=== PATIENT | female | born 1955 | race Caucasian/White ===

== ENCOUNTER 2020-01-07 12:12 | Emergency (ER) | payer BC, MEDICARE ==
[2020-01-07] MEDS ORDERED: Sodium Chloride 0.9% 1,000 ML IV SCH (12:30)
[2020-01-07] MEDS ORDERED: Ondansetron 4 MG/2 ML SDV IVPUSH ONE (12:33)
[2020-01-07] MEDS ORDERED: LORazepam 2 MG/ML SDV IVPUSH ONE (12:48)
[2020-01-07] MEDS ORDERED: Sodium Chloride 0.9% 10 ML Syringe FLUSH PRN (13:57)
[2020-01-07] MEDS ORDERED: Iopamidol 755 Mg/ML 100 ML Bottle IVPUSH ONE (13:57)
[2020-01-07] MEDS ORDERED: Sodium Chloride 0.9% 100 ML IV SCH (14:00)
--- NOTE | 2020-01-07 14:02 | EDM.PDOC ---
ED HPI GENERAL MEDICAL PROBLEM - General Chief Complaint: Neuro Symptoms/Deficits Stated Complaint: STROKE SYMPTOMS Time Seen by Provider: 01/07/20 12:13 - History of Present Illness INITIAL COMMENTS - FREE TEXT/NARRATIVE: 64-year-old female presents the emergency room with strokelike symptoms. She was last known normal between 930 and 10:00 this morning. According to the , he left for a walk to let the dogs out between 930 and 10:00 this morning when he arrived back at their travel trailer she was sitting on the toilet slumped over stated she was not feeling well he was able to his sister to a place she could lay down. She was not getting better and over time developed worsening symptoms. The states that by the time they left the travel trailer in [place] she was not as weak as when she arrived here. 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 This did not require surgery and she rehabbed very well from this according to the she can do anything she wanted to do after rehab. Upon arrival here she has a very dense left-sided weakness. Patient has some underlying liver disease she is on lactulose and according to the a bunch of other liver medications. The patient is answering questions appropriately denies any pain in her head or elsewhere at this time, she is concerned about the weakness. - Related Data Allergies Allergy/AdvReac Type Severity Reaction Status Date / Time Penicillins Allergy Other Verified 01/07/20 12:58 Sulfa (Sulfonamide Allergy Other Verified 01/07/20 12:58 Antibiotics) Past Medical History HEENT History: Reports: Cataract Gastrointestinal History: Reports: Cirrhosis, Jaundice Neurological History: Reports: Brain Injury - Past Surgical History Musculoskeletal Surgical History: Reports: Shoulder Surgery Social & Family History - Family History Family Medical History: Noncontributory - Tobacco Use Smoking Status *Q: Never Smoker Second Hand Smoke Exposure: No - Caffeine Use Caffeine Use: Reports: None - Recreational Drug Use Recreational Drug Use: No ED ROS GENERAL - Review of Systems Review Of Systems: See Below Constitutional: Reports: Weakness. Denies: Fever, Chills HEENT: Reports: No Symptoms Respiratory: Reports: No Symptoms Cardiovascular: Reports: No Symptoms Endocrine: Reports: No Symptoms GI/Abdominal: Reports: No Symptoms. Denies: Abdominal Pain : Reports: No Symptoms Musculoskeletal: Reports: No Symptoms Skin: Reports: No Symptoms Neurological: Reports: Difficulty Walking, Weakness. Denies: Headache, Seizure, Syncope Psychiatric: Reports: No Symptoms ED EXAM, NEURO - Physical Exam Exam: See Below Exam Limited By: Other (The patient is answering questions appropriately she has a marked dense left-sided weakness) General Appearance: Alert Eye Exam: Bilateral Eye: PERRL, Other (She has a hard time looking over to the left but her head is rolled over to the right) Ears: Normal External Exam, Normal Canal, Hearing Grossly Normal, Normal TMs Nose: Normal Inspection, Normal Mucosa Throat/Mouth: Normal Inspection, Normal Lips, Normal Teeth, Normal Gums, Normal Oropharynx, Normal Voice, No Airway Compromise Head Exam: Atraumatic, Normocephalic Neck: Normal Inspection, Supple, Non-Tender. No: Full Range of Motion, Lymphadenopathy (L), Lymphadenopathy (R) Respiratory/Chest: No Respiratory Distress, Lungs Clear, Normal Breath Sounds Cardiovascular: No Edema, No Murmur, Tachycardia (115-120) GI/Abdominal: Normal Bowel Sounds, Soft, Non-Tender Neurological: Alert (Answers questions appropriately she will not do anything with her left leg. With her left arm she can flex it at the elbow a little bit she can squeeze her fingers a little deep tendon reflexes at the brachial radialis are preserved), Other (Initially the patient is tremulous on the affected side that made getting an EKG quite difficult we anticipated sedating her little to see if we get this to improve before getting the head CT however she did stop the tremors except for twitching her left great toe and was able to get the head CT without difficulty.) Extremities: Normal Inspection, No Pedal Edema EKG INTERPRETATION EKG Date: 01/07/20 Rhythm: Other (This tach) Rate (Beats/Min): 117 [place]: Other (Borderline leftward axis) P-Wave: Present QRS: Other (Borderline interventricular conduction delay) ST-T: Depressed (Nondiagnostic ST depression in the setting of no chest pain) Comparison: NA - No Prior EKG EKG Interpretation Comments: Abnormal EKG Course - Vital Signs Last Recorded V/S: Last Vital Signs Temp 36.6 C 01/07/20 12:25 Pulse 120 H 01/07/20 12:25 Resp 16 01/07/20 12:25 BP 170/87 H 01/07/20 12:25 Pulse Ox 95 01/07/20 12:25 - Orders/Labs/Meds Orders: Active Orders 24 hr Category Date Time Status Ang Head [CT] Stat Exams 01/07/20 13:55 Taken CTA Neck W & W/O Contrast [Ang Neck] [CT] Stat Exams 01/07/20 13:55 Taken Chest 1V Frontal [CR] Stat Exams 01/07/20 13:03 Taken Head wo Cont [CT] Stat Exams 01/07/20 12:23 Taken Labs: Laboratory Tests 01/07/20 01/07/20 01/07/20 Range/Units 12:20 12:20 12:20 WBC 5.36 (3.98-10.04) K/mm3 RBC 5.40 H (3.98-5.22) M/mm3 Hgb 16.0 H (11.2-15.7) gm/dl Hct 45.4 H (34.1-44.9) % MCV 84.1 (79.4-94.8) fl MCH 29.6 (25.6-32.2) pg MCHC 35.2 (32.2-35.5) g/dl RDW Std Deviation 48.0 H (36.4-46.3) fL Plt Count 95 L (182-369) K/mm3 MPV 10.9 (9.4-12.3) fl Neut % (Auto) 76.8 H (34.0-71.1) % Lymph % (Auto) 14.6 L (19.3-51.7) % [place] % (Auto) 5.6 (4.7-12.5) % Eos % (Auto) 2.2 (0.7-5.8) Baso % (Auto) 0.4 (0.1-1.2) % Neut # (Auto) 4.12 (1.56-6.13) K/mm3 Lymph # (Auto) 0.78 L (1.18-3.74) K/mm3 [place] # (Auto) 0.30 (0.24-0.36) K/mm3 Eos # (Auto) 0.12 (0.04-0.36) K/mm3 Baso # (Auto) 0.02 (0.01-0.08) K/mm3 Manual Slide Review Abnormal smear PT 14.1 H (9.7-11.7) SECONDS INR 1.33 APTT 30 (22-31) SECONDS Sodium 144 (136-145) mEq/L Potassium 2.6 L (3.5-5.1) mEq/L Chloride 107 (98-107) mEq/L Carbon Dioxide 26 (21-32) mEq/L Anion Gap 13.6 (5-15) BUN 7 (7-18) mg/dL Creatinine 0.7 (0.55-1.02) mg/dL Est Cr Clr Drug Dosing 68.05 mL/min Estimated GFR (MDRD) > 60 (>60) mL/min BUN/Creatinine Ratio 10.0 L (14-18) Glucose 153 H (80-115) mg/dL Calcium 10.0 (8.5-10.1) mg/dL Total Bilirubin 1.8 H (0.2-1.0) mg/dL GGT (5-55) U/L AST 66 H (15-37) U/L ALT 56 (14-59) U/L Alkaline Phosphatase 213 H (46-116) U/L Ammonia (11-32) umol/L Troponin I < 0.017 (0.00-0.056) ng/mL Total Protein 7.5 (6.4-8.2) g/dl Albumin 4.3 (3.4-5.0) g/dl Globulin 3.2 gm/dL Albumin/Globulin Ratio 1.3 (1-2) COVID-19 (ERON) (NEGATIVE) 01/07/20 01/07/20 01/07/20 Range/Units 12:20 13:15 13:15 WBC (3.98-10.04) K/mm3 RBC (3.98-5.22) M/mm3 Hgb (11.2-15.7) gm/dl Hct (34.1-44.9) % MCV (79.4-94.8) fl MCH (25.6-32.2) pg MCHC (32.2-35.5) g/dl RDW Std Deviation (36.4-46.3) fL Plt Count (182-369) K/mm3 MPV (9.4-12.3) fl Neut % (Auto) (34.0-71.1) % Lymph % (Auto) (19.3-51.7) % [place] % (Auto) (4.7-12.5) % Eos % (Auto) (0.7-5.8) Baso % (Auto) (0.1-1.2) % Neut # (Auto) (1.56-6.13) K/mm3 Lymph # (Auto) (1.18-3.74) K/mm3 [place] # (Auto) (0.24-0.36) K/mm3 Eos # (Auto) (0.04-0.36) K/mm3 Baso # (Auto) (0.01-0.08) K/mm3 Manual Slide Review PT (9.7-11.7) SECONDS INR APTT (22-31) SECONDS Sodium (136-145) mEq/L Potassium (3.5-5.1) mEq/L Chloride (98-107) mEq/L Carbon Dioxide (21-32) mEq/L Anion Gap (5-15) BUN (7-18) mg/dL Creatinine (0.55-1.02) mg/dL Est Cr Clr Drug Dosing mL/min Estimated GFR (MDRD) (>60) mL/min BUN/Creatinine Ratio (14-18) Glucose (80-115) mg/dL Calcium (8.5-10.1) mg/dL Total Bilirubin (0.2-1.0) mg/dL GGT 139 H (5-55) U/L AST (15-37) U/L ALT (14-59) U/L Alkaline Phosphatase (46-116) U/L Ammonia 48 H (11-32) umol/L Troponin I (0.00-0.056) ng/mL Total Protein (6.4-8.2) g/dl Albumin (3.4-5.0) g/dl Globulin gm/dL Albumin/Globulin Ratio (1-2) COVID-19 (ERON) Negative (NEGATIVE) Meds: Medications Discontinued Medications Generic Name Dose Route Start Last Admin Trade Name Freq PRN Reason Stop Dose Admin Sodium Chloride 1,000 mls @ 50 mls/hr 01/07/20 12:30 01/07/20 12:40 Normal Saline IV 01/11/20 12:26 50 mls/hr ASDIRECTED ARACELIS Administration Sodium Chloride 100 mls @ 75 mls/hr 01/07/20 14:00 01/07/20 15:26 Normal Saline IV 75 mls/hr ASDIRECTED ARACELIS Administration Iopamidol 100 ml 01/07/20 13:57 01/07/20 15:26 Isovue-370 (76%) IVPUSH 01/07/20 13:58 100 ml ONETIME ONE Administration Lorazepam 2 mg 01/07/20 12:48 01/07/20 14:37 Ativan IVPUSH 01/07/20 12:49 Not Given ONETIME ONE Ondansetron HCl 4 mg 01/07/20 12:33 01/07/20 12:40 Zofran IVPUSH 01/07/20 12:34 4 mg ONETIME ONE Administration Sodium Chloride 10 ml 01/07/20 13:57 Saline Flush FLUSH ONETIME PRN IV FLUSH - Re-Assessments/Exams Free Text/Narrative Re-Assessment/Exam: 01/07/20 14:[address] Obrien on-call neurologist at [facility] at that time we were not sure that they would have a ICU bed available for the patient however now they are. The case was discussed with Dr. Nettles, ER physician who will kindly accept the patient. At that time I was anticipating intubating the patient because she had some mild drops in her O2 saturation requiring 2 L and needed to get over to the CT with the tremors would have been difficult however after that discussion I reevaluated the patient to please not tremulous anymore. And she is doing well on 2 L per nasal cannula at 93-94% she is completing the CTA at this time [facility] has sent over helicopter transfer for the patient I will hold off on intubation at this time. 01/07/20 15:05 Patient left the facility doing well on 2 L per nasal cannula. I did update Dr. Nettles, he is awaiting the patient's arrival. CTA was done images forwarded to [facility] in [place]. Departure - Departure Time of Disposition: 14:13 Disposition: DC/Tfer to [facility] 02 Clinical Impression: CVA (cerebral vascular accident), History of intracranial hemorrhage - Discharge Information Referrals: PCP,Not In Area [Primary Care Provider] - Forms: ED Department Discharge Critical Care Note - Critical Care Note Total Time (mins): 90 Comments: Minutes critical care spent arranging transfer talking to consultants extra time with the patient in radiology and multiple reexaminations. Sepsis Event Note (ED) - Evaluation Sepsis Screening Result: No Definite Risk - Focused Exam Vital Signs: Vital Signs Temp Pulse Resp BP Pulse Ox 01/07/20 12:25 36.6 C 120 H 16 170/87 H 95 - My Orders Last 24 Hours: My Active Orders 01/07/20 12:23 Head wo Cont [CT] Stat 01/07/20 13:03 Chest 1V Frontal [CR] Stat 01/07/20 13:55 Ang Head [CT] Stat CTA Neck W & W/O Contrast [Ang Neck] [CT] Stat - Assessment/Plan Last 24 Hours: My Active Orders 01/07/20 12:23 Head wo Cont [CT] Stat 01/07/20 13:03 Chest 1V Frontal [CR] Stat 01/07/20 13:55 Ang Head [CT] Stat CTA Neck W & W/O Contrast [Ang Neck] [CT] Stat
--- NOTE | 2020-01-08 11:12 | CT ---
Head CT Technique: Multiple axial sections were obtained through the brain. Intravenous contrast was not utilized. Comparison: No prior intracranial imaging is available. Findings: Ventricles along with basal cisterns and sulci over the convexities are moderately prominent. Diffuse diminished density is noted within the periventricular and subcortical white matter most likely relating to small vessel ischemic demyelination change. Area of encephalomalacia noted within the right temporal region most likely relating to old infarct. No additional abnormal parenchymal densities are seen. No evidence of intracranial hemorrhage. No midline shift or mass effect is appreciated. Bone window settings were reviewed which shows no acute calvarial abnormality. Visualized mastoid sinuses and paranasal sinuses show nothing acute. Impression: 1. Senescent change as described above. 2. Nothing acute is appreciated on noncontrast head CT exam. Diagnostic code #2 I agree with preliminary report issued by [email or web address] ([facility] preliminary report dictated on 01/07/20, 2:06 PM Central Daylight Time) Study was dictated in MDT
--- NOTE | 2020-01-08 11:15 | CR ---
Chest: Portable view of the chest is obtained. Comparison: No prior chest imaging is available. Heart size and mediastinum are within normal limits for portable technique. Lungs are clear with no acute parenchymal change. Old proximal humeral fracture is noted on the right side. Secondary degenerative change is noted within the right glenohumeral joint. Impression: 1. Findings as noted above. 2. Nothing acute is appreciated. Diagnostic code #2 Study was dictated in MDT
--- NOTE | 2020-01-08 11:26 | CT ---
CT angiogram of neck Technique: Multiple axial sections through the neck were obtained. Intravenous contrast was utilized in the arterial phase. Reconstructed MIP images were obtained. Findings: Mild atheromatous irregularity is seen within the left carotid bulb. Common carotid arteries, internal carotid arteries and external carotid arteries show no focal stenosis or occlusion. Both vertebral arteries are patent into the basilar artery. Impression: 1. Mild atheromatous irregularity within the left carotid bulb. 2. No focal stenosis, occlusion or dissection is seen within the neck vessels. Diagnostic code #2 I agree with preliminary report issued by [facility] ([facility] preliminary report dictated on 01/07/20, 4:25 PM Central Daylight Time) Study was dictated in MDT
--- NOTE | 2020-01-08 11:26 | CT ---
CT angiogram of brain Technique: Multiple axial sections through the brain were obtained. Intravenous contrast was utilized in the arterial phase. Study has been performed as a CT angiogram of brain. Multiple MIP images were obtained. Findings: Normal appearance of the middle, anterior, basilar and posterior cerebral arteries is noted. Right posterior cerebral artery is supplied by the anterior circulation. No focal occlusion or narrowing is seen. No discrete aneurysm is appreciated. Impression: 1. Nothing acute is seen on CT angiogram of the brain. Diagnostic code #2 I agree with preliminary report issued by [facility] ([facility] preliminary report dictated on 01/07/20, 4:19 PM Central Daylight Time) Study was dictated in MDT
== END 2020-01-07 15:05 ==
LOC: JD.ED 12:12
DX: I63.9 Cerebral infarction, unspecified (principal); Z88.0 Allergy status to penicillin; Z88.2 Allergy status to sulfonamides
CPT/HCPCS: 36415; 70450; 70496; 70498; 71045; 80053; 82140; 82977; 84484; 85025; 85610; 85730; 87635; 93005; 96361; 96374; 99291; 99292; J2405; J7030; J7050; Q9967; 93010; 99285; U0002